=== PATIENT | female | born 1950 | race Asian ===

== ENCOUNTER → 2022-03-05 | Day surgery (SDC) | payer BC, OTHER | END | disposition home or self-care (01) | LOC: JRADUS-SUR 11:42 → JASU-SURG 11:42 | PROVIDERS: ATTEND Internal Medicine | PROC: 0H9U3ZX Drainage of Left Breast, Percutaneous Approach, Diagnostic (ICD-10-PCS; principal; 2022-03-05) | DX: N60.12 Diffuse cystic mastopathy of left breast (principal) | CPT/HCPCS: 19083; 77065-TC; 87899; 88305-TC; A4648 ==